=== PATIENT | male | born 1960 | race African-American/Black ===

== ENCOUNTER 2016-11-26 15:01 | Inpatient (IN) | payer OTHER ==
[2016-11-26 17:44] VITALS: BMI 17.6
--- NOTE | 2016-11-26 20:20 | HP ---
CIWA Score - CIWA Score Nausea/Vomitin-Mild Nausea/No Vomiting Muscle Tremors: 3 Anxiety: 4-Mod. Anxious/Guarded Agitation: 4-Moderately Restless Paroxysmal Sweats: 2 Orientation: 1-Uncertain about Date Tacttile Disturbances: 0-None Auditory Disturbances: 0-None Visual Disturbances: 0-None Headache: 0-None Present CIWA-Ar Total Score: 15 Admission ROS BHS - HPI Chief Complaint: WITHDRAWAL SX Allergies/Adverse Reactions: Allergies Allergy/AdvReac Type Severity Reaction Status Date / Time No Known Allergies Allergy Verified 05/03/16 14:45 History of Present Illness: 56 YEARS OLD MALE WITH LONG HISTORY OF ALCOHOL NICOTINE DEPENDENCE, HAS CHRONIC BACK PAIN PATIENT WAS TOLD NO OPIATE PAIN KILLER WHILE IN DETOX, DENIES MENTAL ILLNESS IS ADMITTED TO DETOX Exam Limitations: No Limitations - Ebola screening Have you traveled outside of the country in the last 21 days: No Have you had contact with anyone from an Ebola affected area: No Have you been sick,other than usual withdrawal symptoms: No Do you have a fever: No - Review of Systems Constitutional: Loss of Appetite, Night Sweats, Changes in sleep, Unexplained wgt Loss EENT: reports: Dental Problems (DENTURE) Respiratory: reports: No Symptoms reported Cardiac: reports: No Symptoms Reported GI: reports: Nausea, Poor Appetite, Poor Fluid Intake, Abdominal cramping : reports: No Symptoms Reported Musculoskeletal: reports: Back Pain Integumentary: reports: No Symptoms Reported Neuro: reports: Tremors Endocrine: reports: No Symptoms Reported Hematology: reports: No Symptoms Reported Psychiatric: reports: Judgement Intact, Mood/Affect Appropiate Other Systems: Reviewed and Negative Patient History - Patient Medical History Hx Anemia: No Hx Asthma: No Hx Chronic Obstructive Pulmonary Disease (COPD): No Hx Cancer: No Hx Cardiac Disorders: No Hx Congestive Heart Failure: No Hx Hypertension: No Hx Hypercholesterolemia: No Hx Pacemaker: No HX Cerebrovascular Accident: No Hx Seizures: No Hx Dementia: No Hx Diabetes: No Hx Gastrointestinal Disorders: No Hx Liver Disease: No Hx Genitourinary Disorders: No Hx Sexually Transmitted Disorders: No Hx Renal Disease (ESRD): No Hx Thyroid Disease: No Hx Human Immunodeficiency Virus (HIV): No Hx Hepatitis C: No Hx Depression: No Hx Suicide Attempt: No Hx Bipolar Disorder: No Hx Schizophrenia: No - Patient Surgical History Past Surgical History: Yes Hx Neurologic Surgery: No Hx Cataract Extraction: No Hx Cardiac Surgery: No Hx Lung Surgery: No Hx Breast Surgery: No Hx Breast Biopsy: No Hx Abdominal Surgery: No Hx Appendectomy: No Hx Cholecystectomy: No Hx Genitourinary Surgery: No Hx Orthopedic Surgery: No Other Surgical History: fx, mandible lower 2009 Anesthesia Reaction: No - PPD History Previous Implant?: Yes Documented Results: Negative w/proof Implanted On Prior [facility] Admission?: Yes Date: 07/13/15 Results: 0 MM PPD to be Administered?: Yes - Smoking Cessation Smoking history: Current every day smoker Have you smoked in the past 12 months: Yes Aproximately how many cigarettes per day: 10 Cigars Per Day: 0 Hx Chewing Tobacco Use: No Initiated information on smoking cessation: Yes 'Breaking Loose' booklet given: 11/26/16 - Substance & Tx. History Hx Alcohol Use: Yes Hx Substance Use: Yes Substance Use Type: Alcohol, Cocaine Hx Substance Use Treatment: Yes - Substances Abused Alcohol Route: Oral Frequency: Daily (3) Amount used: 3 [place] Age of first use: 16 Date of Last Use: 11/26/16 Family Disease History - Family Disease History Family Disease History: Diabetes: Mother ( ), Heart Disease: Mother Admission Physical Exam BHS - Vital Signs Vital Signs: Vital Signs - 24 hr 11/26/16 17:42 Temperature 97.6 F Pulse Rate 93 H Respiratory 18 Rate Blood Pressure 106/57 - Physical General Appearance: Yes: Appropriately Dressed, Mild Distress, Alcohol on Breath , Thin, Tremorous, Irritable, Sweating, Anxious HEENTM: Yes: Hearing grossly Normal, Normal ENT Inspection, Normocephalic, Normal Voice Respiratory: Yes: Chest Non-Tender, Lungs Clear, Normal Breath Sounds, No Respiratory Distress, No Accessory Muscle Use Neck: Yes: Supple, Trachea in good position Breast: Yes: Breasts Symetrical Cardiology: Yes: Regular Rhythm, S1, S2, Tachycardia Abdominal: Yes: Non Tender, Soft Genitourinary: Yes: Within Normal Limits Back: Yes: Normal Inspection Musculoskeletal: Yes: full range of Motion, Gait Steady, Back pain Extremities: Yes: Normal Inspection, Normal Range of Motion, Non-Tender, Tremors Neurological: Yes: Alert, Motor Strength 5/5, Normal Mood/Affect, Normal Response Integumentary: Yes: Warm, Moist Lymphatic: Yes: Within Normal Limits - Diagnostic (1) Alcohol dependence with uncomplicated withdrawal Current Visit: Yes Status: Acute (2) Nicotine dependence Current Visit: Yes Status: Acute Qualifiers: Nicotine product type: cigarettes Substance use status: in withdrawal Qualified Code(s): F17.213 - Nicotine dependence, cigarettes, with withdrawal (3) Weight loss Current Visit: Yes Status: Acute Comment: approx . 40-50 lbs over 7 months (4) Chronic back pain Current Visit: Yes Status: Acute Qualifiers: Back pain location: low back pain Back pain laterality: bilateral Sciatica presence: without sciatica Qualified Code(s): M54.5 - Low back pain; G89.29 - Other chronic pain Comment: LIDOCAINE PATCH FLEXERIL Cleared for Admission [facility] - Detox or Rehab [facility] Level of Care: Medically Managed Detox Regimen/Protocol: Librium [facility] Breath Alcohol Content Breath Alcohol Content: 0.025 Urine Drug Screen - Results Drug Screen Negative: No Urine Drug Screen Results: VERNELL-Cocaine, BZO-Benzodiazepines
[2016-11-26] MEDS ORDERED: NICOTINE POLACRILEX 2 MG GUM BC PRN (20:27)
[2016-11-26] MEDS ORDERED: chlordiazePOXIDE HCL 25 MG CAPSULE PO PRN (20:27)
[2016-11-26] MEDS ORDERED: IBUPROFEN 400 MG TABLET (FP) PO PRN (20:27)
[2016-11-26] MEDS ORDERED: MENTHOL/PHENOL 1 EACH UD MM PRN (20:27)
[2016-11-26] MEDS ORDERED: P-EPHED 60MG/TRIPROLIDI 2.5MG TABLET PO PRN (20:27)
[2016-11-26] MEDS ORDERED: guaiFENesin/D-METHORPHAN HB 10 ML UNIT-DOSE CUPS PO PRN (20:27)
[2016-11-26] MEDS ORDERED: MAG HYDROX/AL HYDROX/SIMETH 30 ML UNIT-DOSE CUP PO PRN (20:27)
[2016-11-26] MEDS ORDERED: LOPERAMIDE HCL 2 MG CAPSULE PO PRN (20:27)
[2016-11-26] MEDS ORDERED: MAGNESIUM HYDROX 2400MG/30ML ORAL SUSPENSION 30 ML CUP PO PRN (20:27)
[2016-11-26] MEDS ORDERED: ACETAMINOPHEN 325 MG TABLET (FP) PO PRN (20:27)
[2016-11-26] MEDS ORDERED: MAGNESIUM CITRATE 300 ML BOTTLE PO PRN (20:27)
[2016-11-26 22:50] LABS: URINE APPEARANCE CLEAR; URINE BILIRUBIN NEGATIVE (NEGATIVE); URINE COLOR YELLOW; URINE GLUCOSE (UA) NEGATIVE (NEGATIVE); URINE KETONE NEGATIVE (NEGATIVE); URINE LEUK ESTERASE NEGATIVE (NEGATIVE); URINE NITRITE NEGATIVE (NEGATIVE); URINE UROBILINOGEN NEGATIVE E.U./dl (0.2-1.0)
[2016-11-26 22:57] LABS: URINE BLOOD 1+ (NEGATIVE); URINE PROTEIN 1+ (NEGATIVE)
[2016-11-26 22:59] LABS: URINE HYALINE CAST 2 /lpf; URINE MUCUS FEW; URINE RBC 13 /hpf (0-3); URINE WBC 1 /hpf (3-5)
[2016-11-26] MEDS ORDERED: chlordiazePOXIDE HCL 25 MG CAPSULE ONE (23:16)
[2016-11-26] MEDS: diphenhydrAMINE HCL 50 MG CAPSULE PO PRN (23:18)
[2016-11-26] MEDS: chlordiazePOXIDE HCL 25 MG CAPSULE PO SCH (23:18)
[2016-11-26] MEDS: CYCLOBENZAPRINE HCL 10 MG TABLET (FP) PO PRN (23:18)
[2016-11-26] MEDS: THIAMINE HCL 100 MG TABLET (FP) PO SCH (23:24)
[2016-11-27] MEDS: chlordiazePOXIDE HCL 25 MG CAPSULE PO SCH ×4 (05:22→22:43)
[2016-11-27 10:53] LABS: MCH 33.9 pg (25.7-33.7); MCHC 33.5 g/dl (32.0-35.9); MEAN CELL VOLUME 101.3 fl (80-96); MEAN PLT VOLUME 8.1 fl (7.5-11.1); PLATELET COUNT 241 K/MM3 (134-434); RDW 12.8 % (11.9-15.9); WHITE BLOOD COUNT 2.9 K/mm3 (4.0-10.0)
[2016-11-27 10:55] LABS: ALBUMIN 3.4 g/dl (3.4-5.0); ANION GAP 8 (8-16); CO2 29 mmol/L (21-32); SGOT/AST 24 U/L (15-37); SGPT/ALT 20 U/L (12-78)
[2016-11-27 10:58] LABS: ALK PHOS 58 U/L (45-117); BILIRUBIN,TOTAL 0.4 mg/dL (0.2-1.0); CALCIUM 9.1 mg/dL (8.5-10.1); CREATININE 0.7 mg/dL (0.7-1.3); GLUCOSE,RANDOM 74 mg/dL (74-106); TOT PROT 6.6 g/dl (6.4-8.2)
[2016-11-27] MEDS: PRENATAL VITAMINS W/ FOLIC ACID TABLET (FP) PO SCH (11:10)
[2016-11-27] MEDS: NICOTINE 14 MG/24 HOURS TOPICAL PATCH TD SCH (11:10)
--- NOTE | 2016-11-27 12:09 | PN ---
S CIWA - CIWA Score Nausea/Vomitin Muscle Tremors: 4-Moderate,w/Arms Extend Anxiety: 4-Mod. Anxious/Guarded Agitation: 4-Moderately Restless Paroxysmal Sweats: 3 Orientation: 0-Oriented Tacttile Disturbances: 1-Very Mild Itch/Numbness Auditory Disturbances: 0-None Visual Disturbances: 0-None Headache: 1-Very Mild CIWA-Ar Total Score: 20 BHS Progress Note (SOAP) Subjective: nausea, sweats, interrupted sleep, anxiety, tremors Objective: 11/27/16 12:08 Vital Signs - 8 hr 11/27/16 11/27/16 06:48 11:32 Temperature 97.1 F L 96.9 F L Pulse Rate 84 77 Respiratory 18 16 Rate Blood Pressure 94/65 93/62 Laboratory Tests 11/26/16 11/27/16 11/27/16 21:57 08:00 08:00 WBC 2.9 L RBC 3.86 L Hgb 13.1 Hct 39.1 MCV 101.3 H MCHC 33.5 RDW 12.8 Plt Count 241 MPV 8.1 Sodium 140 Potassium 4.3 Chloride 103 Carbon Dioxide 29 Anion Gap 8 BUN 18 D Creatinine 0.7 Creat Clearance w eGFR > 60 Random Glucose 74 Calcium 9.1 Total Bilirubin 0.4 D AST 24 ALT 20 Alkaline Phosphatase 58 Total Protein 6.6 Albumin 3.4 Urine Color Yellow Urine Appearance Clear Urine pH 5.0 Ur Specific [place] 1.020 Urine Protein 1+ H Urine Glucose (UA) Negative Urine Ketones Negative Urine Blood 1+ H Urine Nitrite Negative Urine Bilirubin Negative Urine Urobilinogen Negative Ur Leukocyte Esterase Negative Urine RBC 13 Urine WBC 1 Ur Epithelial Cells Rare Hyaline Casts 2 Urine Mucus Few Assessment: 11/27/16 12:09 withdrawal sx, Plan: cont detox, fluids, encourage ambulation
[2016-11-27] MEDS: LIDOCAINE 5% TOPICAL PATCH TP SCH (12:16)
--- NOTE | 2016-11-27 18:34 | EKG ---
Test Reason : Blood Pressure : / mmHG Vent. Rate : 087 BPM Atrial Rate : 087 BPM P-R Int : 140 ms QRS Dur : 070 ms QT Int : 380 ms P-R-T Axes : 068 040 063 degrees QTc Int : 457 ms POOR DATA QUALITY, INTERPRETATION MAY BE ADVERSELY AFFECTED NORMAL SINUS RHYTHM POSSIBLE LEFT ATRIAL ENLARGEMENT SEPTAL INFARCT , AGE UNDETERMINED NONSPECIFIC ST AND T WAVE ABNORMALITY ABNORMAL ECG NO PREVIOUS ECGS AVAILABLE Confirmed by MISTY JOY, COSTA ([id number]) on 11/27/2016 6:34:04 PM Referred By: Confirmed By:COSTA JAY MD
[2016-11-27] MEDS: diphenhydrAMINE HCL 50 MG CAPSULE PO PRN (22:43)
[2016-11-27] MEDS: THIAMINE HCL 100 MG TABLET (FP) PO SCH (22:43)
[2016-11-28] MEDS: chlordiazePOXIDE HCL 25 MG CAPSULE PO SCH ×3 (05:38→17:36)
[2016-11-28] MEDS: NICOTINE 14 MG/24 HOURS TOPICAL PATCH TD SCH (10:53)
[2016-11-28] MEDS: PRENATAL VITAMINS W/ FOLIC ACID TABLET (FP) PO SCH (10:53)
[2016-11-28] MEDS: LIDOCAINE 5% TOPICAL PATCH TP SCH (10:54)
--- NOTE | 2016-11-28 16:14 | PN ---
[facility] CIWA - CIWA Score Nausea/Vomitin-Mild Nausea/No Vomiting Muscle Tremors: 3 Anxiety: 4-Mod. Anxious/Guarded Agitation: 3 Paroxysmal Sweats: No Perspiration Orientation: 0-Oriented Tacttile Disturbances: 1-Very Mild Itch/Numbness Auditory Disturbances: 0-None Visual Disturbances: 0-None Headache: 3-Moderate CIWA-Ar Total Score: 15 BHS Progress Note (SOAP) Subjective: Tremor, anxious, restless, nausea, interrupted sleep, sweating Objective: 11/28/16 16:10 Last Vital Signs Temp Pulse Resp BP Pulse Ox 97 F L 80 16 100/63 11/28/16 14:22 11/28/16 14:22 11/28/16 14:22 11/28/16 14:22 Laboratory Tests 11/26/16 11/27/16 11/27/16 21:57 08:00 08:00 WBC 2.9 L RBC 3.86 L Hgb 13.1 Hct 39.1 MCV 101.3 H MCHC 33.5 RDW 12.8 Plt Count 241 MPV 8.1 Sodium 140 Potassium 4.3 Chloride 103 Carbon Dioxide 29 Anion Gap 8 BUN 18 D Creatinine 0.7 Creat Clearance w eGFR > 60 Random Glucose 74 Calcium 9.1 Total Bilirubin 0.4 D AST 24 ALT 20 Alkaline Phosphatase 58 Total Protein 6.6 Albumin 3.4 Urine Color Yellow Urine Appearance Clear Urine pH 5.0 Ur Specific [place] 1.020 Urine Protein 1+ H Urine Glucose (UA) Negative Urine Ketones Negative Urine Blood 1+ H Urine Nitrite Negative Urine Bilirubin Negative Urine Urobilinogen Negative Ur Leukocyte Esterase Negative Urine RBC 13 Urine WBC 1 Ur Epithelial Cells Rare Hyaline Casts 2 Urine Mucus Few RPR Titer 11/27/16 08:00 WBC RBC Hgb Hct MCV MCHC RDW Plt Count MPV Sodium Potassium Chloride Carbon Dioxide Anion Gap BUN Creatinine Creat Clearance w eGFR Random Glucose Calcium Total Bilirubin AST ALT Alkaline Phosphatase Total Protein Albumin Urine Color Urine Appearance Urine pH Ur Specific [place] Urine Protein Urine Glucose (UA) Urine Ketones Urine Blood Urine Nitrite Urine Bilirubin Urine Urobilinogen Ur Leukocyte Esterase Urine RBC Urine WBC Ur Epithelial Cells Hyaline Casts Urine Mucus RPR Titer Nonreactive Labs noted: UA protein 1+, blood 1+, RBC 13 Assessment: 11/28/16 16:11 Withdrawal symptoms Noted with proteinuria and microscopic hematuria Plan: Continue detox Proteinuria: encouraged to drink more water, repeat UA Microscopic hematuria: encouraged to drink more water, repeat UA
[2016-11-28] MEDS: THIAMINE HCL 100 MG TABLET (FP) PO SCH (22:27)
[2016-11-28] MEDS: chlordiazePOXIDE 5 MG CAPSULE PO SCH (22:28)
[2016-11-28] MEDS: diphenhydrAMINE HCL 50 MG CAPSULE PO PRN (22:28)
[2016-11-29] MEDS: chlordiazePOXIDE 5 MG CAPSULE PO SCH ×3 (05:40→17:32)
[2016-11-29] MEDS: PRENATAL VITAMINS W/ FOLIC ACID TABLET (FP) PO SCH (10:40)
[2016-11-29] MEDS: NICOTINE 14 MG/24 HOURS TOPICAL PATCH TD SCH (10:40)
[2016-11-29] MEDS: LIDOCAINE 5% TOPICAL PATCH TP SCH (10:41)
--- NOTE | 2016-11-29 11:49 | PN ---
BHS Progress Note (SOAP) Subjective: ANXIETY,SWEATS,MUSCLE ACHES. Objective: 11/29/16 11:49 Vital Signs Temperature 97.1 F L 11/29/16 11:02 Pulse Rate 74 11/29/16 11:02 Respiratory Rate 18 11/29/16 11:02 Blood Pressure 106/62 11/29/16 11:02 O2 Sat by Pulse Oximetry (%) Assessment: 11/29/16 11:49 WITHDRAWAL SX Plan: CONTINUE DETOX
--- NOTE | 2016-11-29 19:00 | PN ---
S Progress Note Note: RECEIVED NURSE CALL LESS WITHDRAWAL SX PATIENT REFUSED LIBRIUM 15 MG
[2016-11-29] MEDS: THIAMINE HCL 100 MG TABLET (FP) PO SCH (22:46)
[2016-11-29] MEDS: chlordiazePOXIDE HCL 10 MG CAPSULE PO SCH (22:46)
[2016-11-29] MEDS: diphenhydrAMINE HCL 50 MG CAPSULE PO PRN (22:46)
[2016-11-29] MEDS: CYCLOBENZAPRINE HCL 10 MG TABLET (FP) PO PRN (22:47)
[2016-11-30] MEDS: chlordiazePOXIDE HCL 10 MG CAPSULE PO SCH (06:39)
[2016-11-30] MEDS: PRENATAL VITAMINS W/ FOLIC ACID TABLET (FP) PO SCH (10:23)
[2016-11-30] MEDS: LIDOCAINE 5% TOPICAL PATCH TP SCH (10:23)
[2016-11-30] MEDS: NICOTINE 14 MG/24 HOURS TOPICAL PATCH TD SCH (10:24)
[2016-11-30 10:42] VITALS: BP 95/66; PULSE 82; TEMP 95.8
--- NOTE | 2016-11-30 11:59 | DS ---
[facility] Detox Discharge Summary Admission Date: 11/26/16 Discharge Date: 11/30/16 - History Present History: Alcohol Dependence, Cocaine Dependence Additional Comments: DETOX COMPLETED. REFERRED TO REHAB TODAY. Pertinent Past History: CHRONIC BACK PAIN WEIGHT LOSS - Physical Exam Results Vital Signs: Vital Signs Temperature 95.8 F L 11/30/16 10:41 Pulse Rate 82 11/30/16 10:41 Respiratory Rate 18 11/30/16 10:41 Blood Pressure 95/66 11/30/16 10:41 O2 Sat by Pulse Oximetry (%) Pertinent Admission Physical Exam Findings: WITHDRAWAL SX Laboratory Last Values WBC 2.9 K/mm3 (4.0-10.0) L 11/27/16 08:00 RBC 3.86 M/mm3 (4.00-5.60) L 11/27/16 08:00 Hgb 13.1 GM/dL (11.7-16.9) 11/27/16 08:00 Hct 39.1 % (35.4-49) 11/27/16 08:00 MCV 101.3 fl (80-96) H 11/27/16 08:00 MCHC 33.5 g/dl (32.0-35.9) 11/27/16 08:00 RDW 12.8 % (11.9-15.9) 11/27/16 08:00 Plt Count 241 K/MM3 (134-434) 11/27/16 08:00 MPV 8.1 fl (7.5-11.1) 11/27/16 08:00 Sodium 140 mmol/L (136-145) 11/27/16 08:00 Potassium 4.3 mmol/L (3.5-5.1) 11/27/16 08:00 Chloride 103 mmol/L (98-107) 11/27/16 08:00 Carbon Dioxide 29 mmol/L (21-32) 11/27/16 08:00 Anion Gap 8 (8-16) 11/27/16 08:00 BUN 18 mg/dL (7-18) D 11/27/16 08:00 Creatinine 0.7 mg/dL (0.7-1.3) 11/27/16 08:00 Creat Clearance w eGFR > 60 (>60) 11/27/16 08:00 Random Glucose 74 mg/dL (74-106) 11/27/16 08:00 Calcium 9.1 mg/dL (8.5-10.1) 11/27/16 08:00 Total Bilirubin 0.4 mg/dL (0.2-1.0) D 11/27/16 08:00 AST 24 U/L (15-37) 11/27/16 08:00 ALT 20 U/L (12-78) 11/27/16 08:00 Alkaline Phosphatase 58 U/L (45-117) 11/27/16 08:00 Total Protein 6.6 g/dl (6.4-8.2) 11/27/16 08:00 Albumin 3.4 g/dl (3.4-5.0) 11/27/16 08:00 Urine Color Yellow 11/26/16 21:57 Urine Appearance Clear 11/26/16 21:57 Urine pH 5.0 (5.0-8.0) 11/26/16 21:57 Ur Specific [place] 1.020 (1.001-1.035) 11/26/16 21:57 Urine Protein 1+ (NEGATIVE) H 11/26/16 21:57 Urine Glucose (UA) Negative (NEGATIVE) 11/26/16 21:57 Urine Ketones Negative (NEGATIVE) 11/26/16 21:57 Urine Blood 1+ (NEGATIVE) H 11/26/16 21:57 Urine Nitrite Negative (NEGATIVE) 11/26/16 21:57 Urine Bilirubin Negative (NEGATIVE) 11/26/16 21:57 Urine Urobilinogen Negative E.U./dl (0.2-1.0) 11/26/16 21:57 Ur Leukocyte Esterase Negative (NEGATIVE) 11/26/16 21:57 Urine RBC 13 /hpf (0-3) 11/26/16 21:57 Urine WBC 1 /hpf (3-5) 11/26/16 21:57 Ur Epithelial Cells Rare /hpf (FEW) 11/26/16 21:57 Hyaline Casts 2 /lpf 11/26/16 21:57 Urine Mucus Few 11/26/16 21:57 RPR Titer Nonreactive (NONREACTIVE) 11/27/16 08:00 - Treatment Hospital Course: Detox Protocol Followed, Detoxed Safely, Responded well, Discharged Condition Good, Rehab Referral Accepted Patient has Accepted a Rehab Referral to: [facility] [address] [place] [address] - Medication Discharge Medications: Ambulatory Orders NK [No Known Home Medication] 07/11/15 - Diagnosis (1) Alcohol dependence with uncomplicated withdrawal Current Visit: Yes Status: Acute (2) Chronic back pain Current Visit: Yes Status: Chronic Qualifiers: Back pain location: low back pain Back pain laterality: bilateral Sciatica presence: without sciatica Qualified Code(s): M54.5 - Low back pain; G89.29 - Other chronic pain (3) Nicotine dependence Current Visit: Yes Status: Chronic Qualifiers: Nicotine product type: cigarettes Substance use status: uncomplicated Qualified Code(s): F17.210 - Nicotine dependence, cigarettes, uncomplicated (4) Weight loss Current Visit: Yes Status: Chronic (5) Cocaine dependence Current Visit: Yes Status: Acute Qualifiers: Substance use status: uncomplicated Qualified Code(s): F14.20 - Cocaine dependence, uncomplicated - AMA Did Patient Leave Against Medical Advice: No
== END 2016-11-30 12:30 | disposition other institution (70) | DRG 774 ==
LOC: YASAS 15:01 → Y3N 20:25
PROVIDERS: ADMIT Internal Medicine; ATTEND Internal Medicine
PROC: HZ2ZZZZ Detoxification Services for Substance Abuse Treatment (ICD-10-PCS; principal; 2016-11-30)
DX: F10.230 Alcohol dependence with withdrawal, uncomplicated (principal); F14.20 Cocaine dependence, uncomplicated; F17.210 Nicotine dependence, cigarettes, uncomplicated; M54.5 Low back pain; G89.29 Other chronic pain; R63.4 Abnormal weight loss; Z68.1 Body mass index [BMI] 19.9 or less, adult
CPT/HCPCS: 36415; 80053; 81003; 81015; 85027; 86593; 93005; 93010

== ENCOUNTER 2016-11-30 12:44 | Inpatient (IN) | payer OTHER ==
[2016-11-30] MEDS ORDERED: MENTHOL/PHENOL 1 EACH UD MM PRN (14:16)
[2016-11-30] MEDS ORDERED: MAGNESIUM CITRATE 300 ML BOTTLE PO PRN (14:16)
[2016-11-30] MEDS ORDERED: NICOTINE POLACRILEX 2 MG GUM BUC PRN (14:16)
[2016-11-30] MEDS ORDERED: LOPERAMIDE HCL 2 MG CAPSULE PO PRN (14:16)
[2016-11-30] MEDS ORDERED: MAG HYDROX/AL HYDROX/SIMETH 30 ML UNIT-DOSE CUP PO PRN (14:16)
[2016-11-30] MEDS ORDERED: hydrOXYzine PAMOATE 50 MG CAPSULE (FP) PO PRN (14:16)
[2016-11-30] MEDS ORDERED: MAGNESIUM HYDROX 2400MG/30ML ORAL SUSPENSION 30 ML CUP PO PRN (14:16)
[2016-11-30] MEDS ORDERED: IBUPROFEN 400 MG TABLET (FP) PO PRN (14:16)
[2016-11-30] MEDS ORDERED: guaiFENesin/D-METHORPHAN HB 10 ML UNIT-DOSE CUPS PO PRN (14:16)
[2016-11-30] MEDS ORDERED: ACETAMINOPHEN 325 MG TABLET (FP) PO PRN (14:16)
[2016-11-30] MEDS ORDERED: P-EPHED 60MG/TRIPROLIDI 2.5MG TABLET PO PRN (14:16)
--- NOTE | 2016-11-30 14:18 | HP ---
[facility] Rehab Assess/Revision - Admission History Admitted to Rehab from: [facility] Date of Admission to Rehab: 11/30/16 - Vital signs Vital Signs: Vital Signs Period Temp Pulse Resp BP Sys/Hernandez Pulse Ox Last 24 Hr 98.6 F 81 18 110/68 - Findings Detox History & Physical reviewed: Yes Concur with findings: Yes Comments/Additional Findings: for rehab as protocol
[2016-11-30] MEDS: NICOTINE 21 MG/24 HOURS TOPICAL PATCH TD SCH (15:26)
[2016-11-30] MEDS: THIAMINE HCL 100 MG TABLET (FP) PO SCH (21:27)
[2016-11-30] MEDS: diphenhydrAMINE HCL 50 MG CAPSULE PO PRN (21:27)
[2016-12-01] MEDS: PRENATAL VITAMINS W/ FOLIC ACID TABLET (FP) PO SCH (10:20)
[2016-12-01] MEDS: NICOTINE 21 MG/24 HOURS TOPICAL PATCH TD SCH (10:20)
--- NOTE | 2016-12-01 11:32 | HP ---
Psychiatrist Admission - Data Date of interview: 12/01/16 Admission source: 3N Identifying data: This is the first 5N inpatient rehabilitation admission for this 56 year old black male who is single unemployed on SSI, thare of 35 year old daughter, residing in [facility]. Medical History: Fractured lower mandible in 2009 & surgery done. Smokes cigarettes 10 a day. Psychiatric History: Denies history of psychiatric treatment. Physical/Sexual Abuse/Trauma History: Denies history of sexual, physical and verbal abuse. Vital Signs: Vital Signs - 24 hr 11/30/16 12/01/16 12/01/16 13:07 03:40 07:02 Temperature 98.6 F 98.4 F Pulse Rate 81 72 74 Respiratory 18 16 18 Rate Blood Pressure 110/68 113/68 Allergies/Adverse Reactions: Allergies Allergy/AdvReac Type Severity Reaction Status Date / Time No Known Allergies Allergy Verified 11/30/16 13:08 Date of last physical exam: 11/25/16 Concur with the findings of this exam: Yes - Substance Abuse/Tx History Hx Alcohol Use: Yes (3 pints of vodka, 12 cans daily) Hx Substance Use: Yes Substance Use Type: Alcohol, Cocaine ($50 every other day) Hx Substance [facility] - Admission Criteria Previous failed treatment: Yes Poor recovery environment: Yes Comorbidities: No Lacks judgement: Yes Mental Status Exam - Mental Status Exam Alert and Oriented to: Time, Place, Person Cognitive Function: Grossly Intact Patient Appearance: Well Groomed Affect: Appropriate, Mood Congruent Patient Behavior: Appropriate, Cooperative Speech Pattern: Clear, Appropriate Voice Loudness: Normal Thought Process: Intact, Goal Oriented Thought Disorder: Not Present Hallucinations: Denies Suicidal Ideation: Denies Homicidal Ideation: None, Denies Insight/Judgement: Good Sleep: Well Appetite: Good, Weight loss (lost 20 lbs in 2 months) Muscle strength/Tone: Normal Gait/Station: Normal Psychiatric Findings - Problem List ([place] 1, 2,3) (1) Cocaine dependence Current Visit: No Status: Acute Qualifiers: (2) Nicotine dependence Current Visit: No Status: Chronic Qualifiers: - Initial Treatment Plan Initial Treatment Plan: will continue to monitor progress as needed.
[2016-12-01] MEDS: THIAMINE HCL 100 MG TABLET (FP) PO SCH (21:17)
[2016-12-01] MEDS: diphenhydrAMINE HCL 50 MG CAPSULE PO PRN (21:17)
[2016-12-02] MEDS: NICOTINE 21 MG/24 HOURS TOPICAL PATCH TD SCH (09:55)
[2016-12-02] MEDS: PRENATAL VITAMINS W/ FOLIC ACID TABLET (FP) PO SCH (09:56)
--- NOTE | 2016-12-02 14:49 | PN ---
Psychiatric Progress Note Vital Signs: Vital Signs Period Temp Pulse Resp BP Sys/Hernandez Pulse Ox Last 24 Hr 97.7 F 75 18-18 112/60 Date of Session: 12/02/16 Chief Complaint:: insomnai HPI: Patient is addressing alcohol, nicotine dependence. Current Medications: Active Medications Generic Name Dose Route Start Last Admin Trade Name Freq PRN Reason Stop Dose Admin Acetaminophen 650 mg 11/30/16 14:16 Tylenol - PO Q4H PRN FEVER OR PAIN Al Hydroxide/Mg Hydroxide 30 ml 11/30/16 14:16 Mylanta Oral Suspension - PO Q6H PRN DYSPEPSIA Diphenhydramine HCl 50 mg 11/30/16 14:16 12/01/16 21:17 Benadryl - PO 50 mg HSMR1 PRN Administration FOR ITCHING Eucalyptus/Menthol/Phenol/Sorbitol 1 each 11/30/16 14:16 Cepastat Lozenge - MM Q4H PRN SORE THROAT Guaifenesin 10 ml 11/30/16 14:16 Robitussin Dm - PO Q6H PRN COUGH Hydroxyzine Pamoate 50 mg 11/30/16 14:16 Vistaril - PO Q4H PRN AGITATION Ibuprofen 400 mg 11/30/16 14:16 Motrin - PO Q6H PRN PAIN Loperamide HCl 4 mg 11/30/16 14:16 Imodium - PO Q6H PRN DIARRHEA Magnesium Hydroxide 30 ml 11/30/16 14:16 Milk Of Magnesia - PO DAILY PRN CONSTIPATION Mirtazapine 15 mg 12/02/16 22:00 Remeron - PO HS LORI Nicotine 21 mg 11/30/16 14:30 12/02/16 09:55 Nicoderm Patch - TD 21 mg DAILY LORI Administration Nicotine Polacrilex 2 mg 11/30/16 14:16 Nicorette Gum - BUC Q2H PRN NICOTINE REPLACEMENT RX Multivit/Folic Acid/Iron 1 tab 12/01/16 10:00 12/02/16 09:56 Vitamins (Sjr) - PO 1 tab DAILY LORI Administration Pseudoephedrine/Triprolidine 1 combo 11/30/16 14:16 Actifed - PO TID PRN NASAL CONGESTION Thiamine HCl 100 mg 11/30/16 22:00 12/01/16 21:17 Vitamin B1 - PO 100 mg HS LORI Administration Medication(s) Change(s): add Remeron 15 mg po hs. Current Side Effect: No Lab tests ordered: No Lab tests reviewed: Yes Provider note:: Patient c/o insomnia, states Benadryl not effective, he is fatiqued all day, discussed indicatins and properties of Remeron, patient agreed to start. Total face to face time:: 15 Mental Status Exam - Mental Status Exam Alert and Oriented to: Time, Place, Person Cognitive Function: Grossly Intact Patient Appearance: Well Groomed Mood: Angry, Irritable Affect: Mood Congruent Patient Behavior: Appropriate, Cooperative Speech Pattern: Appropriate Voice Loudness: Normal Thought Process: Goal Oriented Thought Disorder: Not Present Hallucinations: Denies Suicidal Ideation: Denies Homicidal Ideation: Denies Insight/Judgement: Fair Sleep: Poorly, Difficulty falling asleep Appetite: Fair Muscle strength/Tone: Normal Psychiatric Treatment Plan - Problem List (1) Cocaine dependence Current Visit: No Qualifiers: (2) Nicotine dependence Current Visit: No Qualifiers: (3) Alcohol dependence Current Visit: Yes (4) Alcohol-induced sleep disorder Current Visit: Yes
[2016-12-02] MEDS: THIAMINE HCL 100 MG TABLET (FP) PO SCH (21:24)
[2016-12-02] MEDS: MIRTAZAPINE 15 MG TABLET (FP) PO SCH (21:24)
[2016-12-03] MEDS: PRENATAL VITAMINS W/ FOLIC ACID TABLET (FP) PO SCH (09:53)
[2016-12-03] MEDS: NICOTINE 21 MG/24 HOURS TOPICAL PATCH TD SCH (09:54)
[2016-12-03] MEDS: THIAMINE HCL 100 MG TABLET (FP) PO SCH (21:26)
[2016-12-03] MEDS: MIRTAZAPINE 15 MG TABLET (FP) PO SCH (21:26)
[2016-12-04] MEDS: PRENATAL VITAMINS W/ FOLIC ACID TABLET (FP) PO SCH (10:12)
[2016-12-04] MEDS: NICOTINE 21 MG/24 HOURS TOPICAL PATCH TD SCH (10:12)
[2016-12-04] MEDS: MIRTAZAPINE 15 MG TABLET (FP) PO SCH (21:14)
[2016-12-04] MEDS: THIAMINE HCL 100 MG TABLET (FP) PO SCH (21:14)
[2016-12-05] MEDS: NICOTINE 21 MG/24 HOURS TOPICAL PATCH TD SCH (10:04)
[2016-12-05] MEDS: PRENATAL VITAMINS W/ FOLIC ACID TABLET (FP) PO SCH (10:04)
[2016-12-05] MEDS: THIAMINE HCL 100 MG TABLET (FP) PO SCH (21:29)
[2016-12-05] MEDS: MIRTAZAPINE 15 MG TABLET (FP) PO SCH (21:29)
[2016-12-06] MEDS: PRENATAL VITAMINS W/ FOLIC ACID TABLET (FP) PO SCH (10:11)
[2016-12-06] MEDS: NICOTINE 21 MG/24 HOURS TOPICAL PATCH TD SCH (10:12)
--- NOTE | 2016-12-06 13:11 | PN ---
Psychiatric Progress Note Vital Signs: Vital Signs Period Temp Pulse Resp BP Sys/Hernandez Pulse Ox Last 24 Hr 98.2 F 81 18-18 110/69 Date of Session: 12/06/16 Chief Complaint:: insomnia HPI: Patient is addressing alcohol, nicotine dependence comorbid alcohol induced sleep disorder. Current Medications: Active Medications Generic Name Dose Route Start Last Admin Trade Name Freq PRN Reason Stop Dose Admin Acetaminophen 650 mg 11/30/16 14:16 Tylenol - PO Q4H PRN FEVER OR PAIN Al Hydroxide/Mg Hydroxide 30 ml 11/30/16 14:16 Mylanta Oral Suspension - PO Q6H PRN DYSPEPSIA Diphenhydramine HCl 50 mg 11/30/16 14:16 12/01/16 21:17 Benadryl - PO 50 mg HSMR1 PRN Administration FOR ITCHING Eucalyptus/Menthol/Phenol/Sorbitol 1 each 11/30/16 14:16 Cepastat Lozenge - MM Q4H PRN SORE THROAT Guaifenesin 10 ml 11/30/16 14:16 Robitussin Dm - PO Q6H PRN COUGH Hydroxyzine Pamoate 50 mg 11/30/16 14:16 Vistaril - PO Q4H PRN AGITATION Ibuprofen 400 mg 11/30/16 14:16 Motrin - PO Q6H PRN PAIN Loperamide HCl 4 mg 11/30/16 14:16 Imodium - PO Q6H PRN DIARRHEA Magnesium Hydroxide 30 ml 11/30/16 14:16 Milk Of Magnesia - PO DAILY PRN CONSTIPATION Mirtazapine 15 mg 12/02/16 22:00 12/05/16 21:29 Remeron - PO 15 mg HS LORI Administration Nicotine 21 mg 11/30/16 14:30 12/06/16 10:12 Nicoderm Patch - TD 21 mg DAILY LORI Administration Nicotine Polacrilex 2 mg 11/30/16 14:16 Nicorette Gum - BUC Q2H PRN NICOTINE REPLACEMENT RX Multivit/Folic Acid/Iron 1 tab 12/01/16 10:00 12/06/16 10:11 Vitamins (Sjr) - PO 1 tab DAILY LORI Administration Pseudoephedrine/Triprolidine 1 combo 11/30/16 14:16 Actifed - PO TID PRN NASAL CONGESTION Thiamine HCl 100 mg 11/30/16 22:00 12/05/16 21:29 Vitamin B1 - PO 100 mg HS LORI Administration Medication(s) Change(s): d/c Remeron, start Seroquel 25 mg po hs Current Side Effect: No Lab tests ordered: No Lab tests reviewed: Yes Provider note:: patient continued to c/o insomniaaa, states remeron was effective for 3 nights, now he still up all night, he recalls a good responce to small dosage of seroquel, patient also report sthat he has racing thoughts at night which keeps him up, will d/c remeron start seroquel, indications and properties of seroquel discussed with the patient , will contiue to monitor prorgress. Total face to face time:: 10 Mental Status Exam - Mental Status Exam Alert and Oriented to: Time, Place, Person Cognitive Function: Grossly Intact Patient Appearance: Well Groomed Mood: Sad, Anxious Affect: Mood Congruent Patient Behavior: Appropriate, Cooperative Speech Pattern: Appropriate Voice Loudness: Normal Thought Process: Goal Oriented Thought Disorder: Not Present Hallucinations: Denies Suicidal Ideation: Denies Homicidal Ideation: Denies Insight/Judgement: Fair Sleep: Poorly, Difficulty falling asleep Appetite: Fair Muscle strength/Tone: Normal Gait/Station: Normal Psychiatric Treatment Plan - Problem List (1) Cocaine dependence Current Visit: No Qualifiers: (2) Nicotine dependence Current Visit: No Qualifiers: (3) Alcohol dependence Current Visit: Yes (4) Alcohol-induced sleep disorder Current Visit: Yes (5) Mood disorder Current Visit: Yes
[2016-12-06] MEDS: THIAMINE HCL 100 MG TABLET (FP) PO SCH (21:19)
[2016-12-06] MEDS: QUEtiapine FUMARATE 25 MG TABLET (FP) PO SCH (21:19)
[2016-12-07] MEDS: NICOTINE 21 MG/24 HOURS TOPICAL PATCH TD SCH (10:14)
[2016-12-07] MEDS: PRENATAL VITAMINS W/ FOLIC ACID TABLET (FP) PO SCH (10:14)
[2016-12-07] MEDS: QUEtiapine FUMARATE 25 MG TABLET (FP) PO SCH (21:12)
[2016-12-07] MEDS: THIAMINE HCL 100 MG TABLET (FP) PO SCH (21:12)
[2016-12-08] MEDS: PRENATAL VITAMINS W/ FOLIC ACID TABLET (FP) PO SCH (09:55)
[2016-12-08] MEDS: NICOTINE 14 MG/24 HOURS TOPICAL PATCH TD SCH (09:56)
--- NOTE | 2016-12-08 10:21 | PN ---
[facility] Progress Note Note: patient c/o insomnia, mood swings , racing thoughts, [place]el with good effect, will increase, continue to monitor progress.
[2016-12-08] MEDS: THIAMINE HCL 100 MG TABLET (FP) PO SCH (21:17)
[2016-12-08] MEDS: QUEtiapine FUMARATE 100 MG TABLET (FP) PO SCH (21:17)
[2016-12-09] MEDS: PRENATAL VITAMINS W/ FOLIC ACID TABLET (FP) PO SCH (09:49)
[2016-12-09] MEDS: NICOTINE 14 MG/24 HOURS TOPICAL PATCH TD SCH (09:49)
[2016-12-09] MEDS: QUEtiapine FUMARATE 100 MG TABLET (FP) PO SCH (21:50)
[2016-12-09] MEDS: THIAMINE HCL 100 MG TABLET (FP) PO SCH (21:50)
[2016-12-09] MEDS: CLOTRIMAZOLE/BETAMET DIPROP 15 GM TUBE TP SCH (21:52)
[2016-12-10] MEDS: NICOTINE 14 MG/24 HOURS TOPICAL PATCH TD SCH (09:57)
[2016-12-10] MEDS: PRENATAL VITAMINS W/ FOLIC ACID TABLET (FP) PO SCH (09:57)
[2016-12-10] MEDS: CLOTRIMAZOLE/BETAMET DIPROP 15 GM TUBE TP SCH ×2 (09:58→21:14)
[2016-12-10] MEDS: QUEtiapine FUMARATE 100 MG TABLET (FP) PO SCH (21:14)
[2016-12-10] MEDS: THIAMINE HCL 100 MG TABLET (FP) PO SCH (21:14)
[2016-12-11] MEDS: NICOTINE 14 MG/24 HOURS TOPICAL PATCH TD SCH (09:57)
[2016-12-11] MEDS: CLOTRIMAZOLE/BETAMET DIPROP 15 GM TUBE TP SCH ×2 (09:57→21:15)
[2016-12-11] MEDS: PRENATAL VITAMINS W/ FOLIC ACID TABLET (FP) PO SCH (09:57)
[2016-12-11] MEDS: THIAMINE HCL 100 MG TABLET (FP) PO SCH (21:15)
[2016-12-11] MEDS: QUEtiapine FUMARATE 100 MG TABLET (FP) PO SCH (21:15)
[2016-12-12] MEDS: PRENATAL VITAMINS W/ FOLIC ACID TABLET (FP) PO SCH (10:21)
[2016-12-12] MEDS: NICOTINE 14 MG/24 HOURS TOPICAL PATCH TD SCH (10:21)
[2016-12-12] MEDS: CLOTRIMAZOLE/BETAMET DIPROP 15 GM TUBE TP SCH ×2 (10:22→21:04)
[2016-12-12] MEDS: THIAMINE HCL 100 MG TABLET (FP) PO SCH (21:03)
[2016-12-12] MEDS: QUEtiapine FUMARATE 100 MG TABLET (FP) PO SCH (21:03)
[2016-12-13] MEDS: PRENATAL VITAMINS W/ FOLIC ACID TABLET (FP) PO SCH (09:55)
[2016-12-13] MEDS: CLOTRIMAZOLE/BETAMET DIPROP 15 GM TUBE TP SCH ×2 (09:55→21:13)
[2016-12-13] MEDS: NICOTINE 14 MG/24 HOURS TOPICAL PATCH TD SCH (09:56)
[2016-12-13] MEDS: THIAMINE HCL 100 MG TABLET (FP) PO SCH (21:13)
[2016-12-13] MEDS: QUEtiapine FUMARATE 100 MG TABLET (FP) PO SCH (21:13)
[2016-12-14] MEDS: PRENATAL VITAMINS W/ FOLIC ACID TABLET (FP) PO SCH (09:53)
[2016-12-14] MEDS: NICOTINE 14 MG/24 HOURS TOPICAL PATCH TD SCH (09:54)
[2016-12-14] MEDS: CLOTRIMAZOLE/BETAMET DIPROP 15 GM TUBE TP SCH ×2 (09:54→21:20)
--- NOTE | 2016-12-14 12:59 | PN ---
Psychiatric Progress Note Vital Signs: Vital Signs Period Temp Pulse Resp BP Sys/Hernandez Pulse Ox Last 24 Hr 98.4 F 71 16-18 125/69 Date of Session: 12/14/16 Chief Complaint:: Insomnia HPI: Patient is addressing alcohol, nicotine dependence comorbid alcohol induced sleep disorder. Current Medications: Active Medications Generic Name Dose Route Start Last Admin Trade Name Freq PRN Reason Stop Dose Admin Acetaminophen 650 mg 11/30/16 14:16 Tylenol - PO Q4H PRN FEVER OR PAIN Al Hydroxide/Mg Hydroxide 30 ml 11/30/16 14:16 Mylanta Oral Suspension - PO Q6H PRN DYSPEPSIA Clotrimazole 1 applic 12/09/16 22:00 12/14/16 09:54 Lotrisone Cream (Small Tube) TP Not Given BID LORI Diphenhydramine HCl 50 mg 11/30/16 14:16 12/01/16 21:17 Benadryl - PO 50 mg HSMR1 PRN Administration FOR ITCHING Eucalyptus/Menthol/Phenol/Sorbitol 1 each 11/30/16 14:16 Cepastat Lozenge - MM Q4H PRN SORE THROAT Guaifenesin 10 ml 11/30/16 14:16 Robitussin Dm - PO Q6H PRN COUGH Hydroxyzine Pamoate 50 mg 11/30/16 14:16 Vistaril - PO Q4H PRN AGITATION Ibuprofen 400 mg 11/30/16 14:16 Motrin - PO Q6H PRN PAIN Loperamide HCl 4 mg 11/30/16 14:16 Imodium - PO Q6H PRN DIARRHEA Magnesium Hydroxide 30 ml 11/30/16 14:16 Milk Of Magnesia - PO DAILY PRN CONSTIPATION Nicotine 14 mg 12/08/16 10:00 12/14/16 09:54 Nicoderm Patch - TD Not Given DAILY LORI Nicotine Polacrilex 2 mg 11/30/16 14:16 Nicorette Gum - BUC Q2H PRN NICOTINE REPLACEMENT RX Multivit/Folic Acid/Iron 1 tab 12/01/16 10:00 12/14/16 09:53 Vitamins (Sjr) - PO 1 tab DAILY LORI Administration Pseudoephedrine/Triprolidine 1 combo 11/30/16 14:16 Actifed - PO TID PRN NASAL CONGESTION Quetiapine Fumarate 100 mg 12/08/16 22:00 12/13/16 21:13 Seroquel - PO 100 mg HS LORI Administration Thiamine HCl 100 mg 11/30/16 22:00 12/13/16 21:13 Vitamin B1 - PO 100 mg HS LORI Administration Medication(s) Change(s): Increase Seroquel dosage to 150 mg po HS Current Side Effect: No Lab tests ordered: No Lab tests reviewed: No Provider note:: Patient reports experiencing difficulty to sleep. 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 Requests that Seroquel dose be increased Total face to face time:: 25 Mental Status Exam - Mental Status Exam Alert and Oriented to: Time, Place, Person Cognitive Function: Fair Patient Appearance: Well Groomed Mood: Hopeful, Euthymic Affect: Appropriate Patient Behavior: Cooperative Speech Pattern: Clear Voice Loudness: Normal Thought Process: Intact Thought Disorder: Not Present Hallucinations: Denies Suicidal Ideation: Denies Homicidal Ideation: Denies Insight/Judgement: Fair Sleep: Poorly Appetite: Good Muscle strength/Tone: Normal Gait/Station: Normal Psychiatric Treatment Plan - Problem List (1) Alcohol dependence Current Visit: Yes (2) Nicotine dependence Current Visit: No Qualifiers: (3) Alcohol-induced sleep disorder Current Visit: Yes (4) Chronic back pain Current Visit: No Qualifiers: Back pain location: low back pain Back pain laterality: bilateral Sciatica presence: without sciatica Qualified Code(s): M54.5 - Low back pain; G89.29 - Other chronic pain Comment: LIDOCAINE PATCH FLEXERIL
[2016-12-14] MEDS: QUEtiapine FUMARATE 50 MG TABLET PO SCH (21:20)
[2016-12-14] MEDS: THIAMINE HCL 100 MG TABLET (FP) PO SCH (21:20)
[2016-12-15] MEDS: PRENATAL VITAMINS W/ FOLIC ACID TABLET (FP) PO SCH (09:48)
[2016-12-15] MEDS: NICOTINE 14 MG/24 HOURS TOPICAL PATCH TD SCH (09:48)
[2016-12-15] MEDS: CLOTRIMAZOLE/BETAMET DIPROP 15 GM TUBE TP SCH ×2 (09:48→21:13)
[2016-12-15] MEDS: THIAMINE HCL 100 MG TABLET (FP) PO SCH (21:11)
[2016-12-15] MEDS: QUEtiapine FUMARATE 50 MG TABLET PO SCH (21:11)
[2016-12-16] MEDS: CLOTRIMAZOLE/BETAMET DIPROP 15 GM TUBE TP SCH ×2 (09:43→21:03)
[2016-12-16] MEDS: PRENATAL VITAMINS W/ FOLIC ACID TABLET (FP) PO SCH (09:43)
[2016-12-16] MEDS: NICOTINE 14 MG/24 HOURS TOPICAL PATCH TD SCH (09:43)
[2016-12-16] MEDS: QUEtiapine FUMARATE 50 MG TABLET PO SCH (21:03)
[2016-12-16] MEDS: THIAMINE HCL 100 MG TABLET (FP) PO SCH (21:03)
[2016-12-17] MEDS: PRENATAL VITAMINS W/ FOLIC ACID TABLET (FP) PO SCH (09:22)
[2016-12-17] MEDS: NICOTINE 14 MG/24 HOURS TOPICAL PATCH TD SCH (09:22)
[2016-12-17] MEDS: CLOTRIMAZOLE/BETAMET DIPROP 15 GM TUBE TP SCH ×2 (09:23→21:13)
[2016-12-17] MEDS: THIAMINE HCL 100 MG TABLET (FP) PO SCH (21:14)
[2016-12-17] MEDS: QUEtiapine FUMARATE 50 MG TABLET PO SCH (21:14)
[2016-12-18] MEDS: NICOTINE 14 MG/24 HOURS TOPICAL PATCH TD SCH (10:01)
[2016-12-18] MEDS: CLOTRIMAZOLE/BETAMET DIPROP 15 GM TUBE TP SCH ×2 (10:01→21:35)
[2016-12-18] MEDS: PRENATAL VITAMINS W/ FOLIC ACID TABLET (FP) PO SCH (10:01)
[2016-12-18] MEDS: QUEtiapine FUMARATE 50 MG TABLET PO SCH (21:34)
[2016-12-18] MEDS: THIAMINE HCL 100 MG TABLET (FP) PO SCH (21:35)
[2016-12-19] MEDS: PRENATAL VITAMINS W/ FOLIC ACID TABLET (FP) PO SCH (10:12)
[2016-12-19] MEDS: NICOTINE 14 MG/24 HOURS TOPICAL PATCH TD SCH (10:12)
[2016-12-19] MEDS: CLOTRIMAZOLE/BETAMET DIPROP 15 GM TUBE TP SCH ×2 (10:12→21:03)
[2016-12-19] MEDS: THIAMINE HCL 100 MG TABLET (FP) PO SCH (21:03)
[2016-12-19] MEDS: QUEtiapine FUMARATE 50 MG TABLET PO SCH (21:03)
[2016-12-20] MEDS: PRENATAL VITAMINS W/ FOLIC ACID TABLET (FP) PO SCH (09:41)
[2016-12-20] MEDS: CLOTRIMAZOLE/BETAMET DIPROP 15 GM TUBE TP SCH ×2 (09:41→21:04)
[2016-12-20] MEDS: NICOTINE 14 MG/24 HOURS TOPICAL PATCH TD SCH (09:42)
--- NOTE | 2016-12-20 13:43 | PN ---
Psychiatric Progress Note Vital Signs: Vital Signs Period Temp Pulse Resp BP Sys/Hernandez Pulse Ox Last 24 Hr 97.4 F 78 18-20 104/68 Date of Session: 12/20/16 Chief Complaint:: insomnia HPI: Patient is addressing alcohol, nicotine dependence comorbid alcohol induced sleep disorder and mood disorder. Current Medications: Active Medications Generic Name Dose Route Start Last Admin Trade Name Freq PRN Reason Stop Dose Admin Acetaminophen 650 mg 11/30/16 14:16 Tylenol - PO Q4H PRN FEVER OR PAIN Al Hydroxide/Mg Hydroxide 30 ml 11/30/16 14:16 Mylanta Oral Suspension - PO Q6H PRN DYSPEPSIA Clotrimazole 1 applic 12/09/16 22:00 12/20/16 09:41 Lotrisone Cream (Small Tube) TP Not Given BID LORI Diphenhydramine HCl 50 mg 11/30/16 14:16 12/01/16 21:17 Benadryl - PO 50 mg HSMR1 PRN Administration FOR ITCHING Eucalyptus/Menthol/Phenol/Sorbitol 1 each 11/30/16 14:16 Cepastat Lozenge - MM Q4H PRN SORE THROAT Guaifenesin 10 ml 11/30/16 14:16 Robitussin Dm - PO Q6H PRN COUGH Hydroxyzine Pamoate 50 mg 11/30/16 14:16 Vistaril - PO Q4H PRN AGITATION Ibuprofen 400 mg 11/30/16 14:16 Motrin - PO Q6H PRN PAIN Loperamide HCl 4 mg 11/30/16 14:16 Imodium - PO Q6H PRN DIARRHEA Magnesium Hydroxide 30 ml 11/30/16 14:16 Milk Of Magnesia - PO DAILY PRN CONSTIPATION Nicotine 14 mg 12/08/16 10:00 12/20/16 09:42 Nicoderm Patch - TD Not Given DAILY LORI Nicotine Polacrilex 2 mg 11/30/16 14:16 Nicorette Gum - BUC Q2H PRN NICOTINE REPLACEMENT RX Multivit/Folic Acid/Iron 1 tab 12/01/16 10:00 12/20/16 09:41 Vitamins (Sjr) - PO 1 tab DAILY LORI Administration Pseudoephedrine/Triprolidine 1 combo 11/30/16 14:16 Actifed - PO TID PRN NASAL CONGESTION Thiamine HCl 100 mg 11/30/16 22:00 12/19/16 21:03 Vitamin B1 - PO 100 mg HS LORI Administration Medication(s) Change(s): will increase Seroquel 200 mg po hs. Current Side Effect: No Lab tests ordered: No Lab tests reviewed: Yes Provider note:: Patient reports has been feling much beetre since started Seroquel, more energetic and hopeful, he still having difficulty at nights with his sleeping, reports he sleep in interrupted and unrefreshful, reviewed medication with the patient, side-effects and benefits discussed with the patient, will increase med., continue to monitor progress. Supportive therapy has been provided. Total face to face time:: 35 Mental Status Exam - Mental Status Exam Alert and Oriented to: Time, Place, Person Cognitive Function: Good Patient Appearance: Well Groomed Mood: Hopeful Affect: Appropriate, Mood Congruent Patient Behavior: Appropriate, Cooperative Speech Pattern: Clear, Appropriate Voice Loudness: Normal Thought Process: Goal Oriented Thought Disorder: Not Present Hallucinations: Denies Suicidal Ideation: Denies Homicidal Ideation: Denies Insight/Judgement: Fair Sleep: Poorly, Difficulty falling asleep Appetite: Good Muscle strength/Tone: Normal Gait/Station: Normal Psychiatric Treatment Plan - Problem List (1) Cocaine dependence Current Visit: No Qualifiers: (2) Nicotine dependence Current Visit: No Qualifiers: (3) Alcohol dependence Current Visit: Yes (4) Alcohol-induced sleep disorder Current Visit: Yes (5) Mood disorder Current Visit: Yes
[2016-12-20] MEDS: QUEtiapine FUMARATE 200 MG TABLET PO SCH (21:03)
[2016-12-20] MEDS: THIAMINE HCL 100 MG TABLET (FP) PO SCH (21:03)
[2016-12-21] MEDS: PRENATAL VITAMINS W/ FOLIC ACID TABLET (FP) PO SCH (09:44)
[2016-12-21] MEDS: CLOTRIMAZOLE/BETAMET DIPROP 15 GM TUBE TP SCH ×2 (09:45→21:01)
[2016-12-21] MEDS: NICOTINE 14 MG/24 HOURS TOPICAL PATCH TD SCH (09:45)
--- NOTE | 2016-12-21 15:26 | PN ---
Psychiatric Progress Note Vital Signs: Vital Signs Period Temp Pulse Resp BP Sys/Hernandez Pulse Ox Last 24 Hr 97.9 F 73 18-18 103/61 Date of Session: 12/21/16 Chief Complaint:: discharge visit HPI: Patient is addressing alcohol, nicotine dependence comorbid alcohol induced sleep disorder and mood disorder. ROS: Fractured lower mandible in 2009 & surgery done Current Medications: Active Medications Generic Name Dose Route Start Last Admin Trade Name Freq PRN Reason Stop Dose Admin Acetaminophen 650 mg 11/30/16 14:16 Tylenol - PO Q4H PRN FEVER OR PAIN Al Hydroxide/Mg Hydroxide 30 ml 11/30/16 14:16 Mylanta Oral Suspension - PO Q6H PRN DYSPEPSIA Clotrimazole 1 applic 12/09/16 22:00 12/21/16 09:45 Lotrisone Cream (Small Tube) TP Not Given BID LORI Diphenhydramine HCl 50 mg 11/30/16 14:16 12/01/16 21:17 Benadryl - PO 50 mg HSMR1 PRN Administration FOR ITCHING Eucalyptus/Menthol/Phenol/Sorbitol 1 each 11/30/16 14:16 Cepastat Lozenge - MM Q4H PRN SORE THROAT Guaifenesin 10 ml 11/30/16 14:16 Robitussin Dm - PO Q6H PRN COUGH Hydroxyzine Pamoate 50 mg 11/30/16 14:16 Vistaril - PO Q4H PRN AGITATION Ibuprofen 400 mg 11/30/16 14:16 Motrin - PO Q6H PRN PAIN Loperamide HCl 4 mg 11/30/16 14:16 Imodium - PO Q6H PRN DIARRHEA Magnesium Hydroxide 30 ml 11/30/16 14:16 Milk Of Magnesia - PO DAILY PRN CONSTIPATION Nicotine 14 mg 12/08/16 10:00 12/21/16 09:45 Nicoderm Patch - TD Not Given DAILY LORI Nicotine Polacrilex 2 mg 11/30/16 14:16 Nicorette Gum - BUC Q2H PRN NICOTINE REPLACEMENT RX Multivit/Folic Acid/Iron 1 tab 12/01/16 10:00 12/21/16 09:44 Vitamins (Sjr) - PO 1 tab DAILY LORI Administration Pseudoephedrine/Triprolidine 1 combo 11/30/16 14:16 Actifed - PO TID PRN NASAL CONGESTION Quetiapine Fumarate 200 mg 12/20/16 22:00 12/20/16 21:03 Seroquel - PO 200 mg HS LORI Administration Thiamine HCl 100 mg 11/30/16 22:00 12/20/16 21:03 Vitamin B1 - PO 100 mg HS LORI Administration Current Side Effect: No Lab tests ordered: No Lab tests reviewed: Yes Provider note:: Patient will complete this program tomorrow on 12/22/16 and meet his goals, will continue to address his issues at [facility] outpatient treatment program. Patient reports has been feeling much better since he started Seroquel , more energetic, hopeful and happier, he understands the negative outcome of his addiction and vreblaized his reslution to continue maintain abstinence and be adherent to every aspect of his outpatient treatment plans. Seroquel well tolerated, scripts provided for 30 days, patient is stable for discharge on 12/22/16/ Total face to face time:: 35 Mental Status Exam - Mental Status Exam Alert and Oriented to: Time, Place, Person Cognitive Function: Good Patient Appearance: Well Groomed Mood: Hopeful Affect: Appropriate, Mood Congruent, Normal Range Patient Behavior: Appropriate, Cooperative Speech Pattern: Clear, Appropriate Voice Loudness: Normal Thought Process: Intact, Goal Oriented Thought Disorder: Not Present Hallucinations: Denies Suicidal Ideation: Denies Homicidal Ideation: Denies Insight/Judgement: Fair Sleep: Fair Appetite: Good Muscle strength/Tone: Normal Gait/Station: Normal Psychiatric Treatment Plan - Problem List (1) Cocaine dependence Current Visit: No Qualifiers: (2) Nicotine dependence Current Visit: No Qualifiers: (3) Alcohol dependence Current Visit: Yes (4) Alcohol-induced sleep disorder Current Visit: Yes (5) Mood disorder Current Visit: Yes
[2016-12-21] MEDS: THIAMINE HCL 100 MG TABLET (FP) PO SCH (21:02)
[2016-12-21] MEDS: QUEtiapine FUMARATE 200 MG TABLET PO SCH (21:02)
[2016-12-22 06:57] VITALS: BP 89/65; PULSE 84; TEMP 98
[2016-12-22] MEDS: PRENATAL VITAMINS W/ FOLIC ACID TABLET (FP) PO SCH (09:57)
[2016-12-22] MEDS: CLOTRIMAZOLE/BETAMET DIPROP 15 GM TUBE TP SCH (09:58)
[2016-12-22] MEDS: NICOTINE 14 MG/24 HOURS TOPICAL PATCH TD SCH (09:58)
== END 2016-12-22 10:50 | disposition home or self-care (01) | DRG 772 ==
LOC: YASAS 12:44 → Y5N 12:45
PROVIDERS: ADMIT Psychiatry & Neurology Psychiatry; ATTEND Psychiatry & Neurology Psychiatry
PROC: HZ42ZZZ Group Counseling for Substance Abuse Treatment, Cognitive-Behavioral (ICD-10-PCS; principal; 2016-12-22)
DX: F10.20 Alcohol dependence, uncomplicated (principal); F14.20 Cocaine dependence, uncomplicated; F10.282 Alcohol dependence with alcohol-induced sleep disorder; F39 Unspecified mood [affective] disorder